=== PATIENT | male | born 1985 | race Caucasian/White ===

== ENCOUNTER 2018-12-17 22:13 | Emergency (ER) | payer MEDICAID ==
[~2018-12-17] VITALS: Ht 175.3 cm; Wt 80.6 kg
[~2018-12-17 22:13] MED LIST: AZEL6DRO OP; CYCL-394 PO; DIPH-423 PO
[2018-12-17 22:26] VITALS: BP 136/96
== END 2018-12-18 05:02 | disposition left against medical advice (07) ==
LOC: ER 22:13
DX: N20.0 Calculus of kidney (principal); Z53.21 Procedure and treatment not carried out due to patient leaving prior to being seen by health care provider
CPT/HCPCS: 99281

== ENCOUNTER 2018-12-22 18:08 | Emergency (ER) | payer MEDICAID ==
[~2018-12-22] VITALS: Ht 175.3 cm; Wt 90.2 kg
[2018-12-22 18:30] VITALS: BP 165/85
[2018-12-22] MEDS ORDERED: NAPR-56 PO (19:02)
== END 2018-12-22 19:25 | disposition home or self-care (01) ==
LOC: ER 18:09
DX: S63.502A Unspecified sprain of left wrist, initial encounter (principal); I10 Essential (primary) hypertension; Z79.899 Other long term (current) drug therapy; W18.09XA Striking against other object with subsequent fall, initial encounter; Y93.89 Activity, other specified; Y92.89 Other specified places as the place of occurrence of the external cause; Y99.8 Other external cause status
CPT/HCPCS: 29125; 73110; 99283

== ENCOUNTER 2019-06-09 02:10 | Emergency (ER) | payer MEDICAID ==
[~2019-06-09] VITALS: Ht 172.7 cm; Wt 84.0 kg
--- NOTE | 2019-06-09 02:17 | NUR ---
c\o nasal congestion that changed from clear to yellow to blood. pt reports the right side is more painful.
[2019-06-09] MEDS ORDERED: AMOX-422 PO (02:23)
[2019-06-09] MEDS ORDERED: amox tr/potassium clavulanate 875/125mg TAB PO ONE (02:25)
[2019-06-09 02:38] VITALS: BP 146/87
== END 2019-06-09 02:40 | disposition home or self-care (01) ==
LOC: ER 02:11
DX: J32.9 Chronic sinusitis, unspecified (principal); I10 Essential (primary) hypertension; Z87.442 Personal history of urinary calculi; Z79.899 Other long term (current) drug therapy
CPT/HCPCS: 99283

== ENCOUNTER 2021-04-27 05:08 | Emergency (ER) | payer MEDICAID ==
[~2021-04-27] VITALS: Ht 175.3 cm; Wt 86.4 kg
[2021-04-27] MEDS ORDERED: normal saline 1000ml 1,000 ML IVB ONE (05:15)
[2021-04-27] MEDS ORDERED: ketorolac trometh. 30mg/ml inj. IV STA (05:15)
[2021-04-27] MEDS ORDERED: ondansetron/PF 4mg/2ml inj IV ONE (05:20)
[2021-04-27] MEDS ORDERED: TADA20TA PO (05:38)
[2021-04-27] MEDS ORDERED: KETO10TA2 PO (05:38)
[2021-04-27] MEDS ORDERED: LEVO500T89 PO (05:38)
[2021-04-27] MEDS ORDERED: HYDR-3965 PO (05:38)
[2021-04-27] MEDS ORDERED: ONDA4TAB6 PO (05:38)
[2021-04-27 06:18] LABS: COLOR,URINE YELLOW (Yellow); UA COLLECTION TYPE CLN CATCH MIDSTREAM
[2021-04-27 06:19] LABS: CLARITY,URINE CLOUDY (Clear); GLUCOSE, URINE NEGATIVE (Neg); KETONES,URINE NEGATIVE (Neg); PROTEIN,URINE 100 mg/dl (Neg)
[2021-04-27 06:20] LABS: LEUKOCYTE ESTERASE ,URINE TRACE (Neg); NITRITES, URINE NEGATIVE (Neg); OCCULT BLOOD,URINE LARGE (Neg); UROBILINOGEN,URINE 0.2 E.U/dL (0.2-1.0)
[2021-04-27 06:23] LABS: BACTERIA,URINE FEW /HPF (Neg); CAL OXALATE CRYSTALS FEW /HPF (NEGATIVE); MUCUS STRANDS NONE SEEN /LPF (Neg); RBC,URINE TNTC /HPF (0-2); SPERM FEW /HPF (NEGATIVE); SQUAMOUS EPITHELIAL CELL,UR NONE SEEN /LPF (FEW); TRANSITIONAL EPI CELLS,URINE FEW /HPF; WBC,URINE 0-4 /HPF (0-4)
[2021-04-27 06:50] LABS: BASOPHILS # (AUTO) 0.1 X10'3 (0-0.2); BASOPHILS % (AUTO) 0.9 % (0-1); EOSINOPHILS # (AUTO) 0.2 X10'3 (0-0.9); EOSINOPHILS % (AUTO) 2.4 % (0-6); HEMOGLOBIN 13.9 g/dl (14.0-17.9); LYMPHOCYTES # (AUTO) 1.8 X10'3 (1.1-4.8); LYMPHOCYTES % (AUTO) 20.2 % (21-51); MEAN CORPUSCULAR HEMOGLOBIN 28.5 PG (27.0-31.0); MEAN CORPUSCULAR HGB CONC 33.9 g/dL (33.0-36.5); MEAN CORPUSCULAR VOLUME 84.2 FL (78-98); MEAN PLATELET VOLUME 7.6 FL (7.4-10.4); MONOCYTES # (AUTO) 0.8 X10'3 (0-0.9); MONOCYTES % (AUTO) 8.6 % (2-12); NEUTROPHILS # (AUTO) 6.2 X10'3 (1.8-7.7); NEUTROPHILS % (AUTO) 67.9 % (42-75); PLATELET COUNT 256 X10'3 (140-440); RED BLOOD COUNT 4.87 X10'6 (4.70-6.10); RED CELL DISTRIBUTION WIDTH 12.9 % (11.5-14.5); WHITE BLOOD COUNT 9.1 X10'3 (4.5-11.0)
[2021-04-27] MEDS: morphine 4 MG/ML inj SYRINge IV PRN ×2 (06:51→07:42)
[2021-04-27 07:10] LABS: ALANINE AMINOTRANSFERASE 26 U/L (12-78); ALBUMIN 3.1 G/DL (3.4-5.0); ALKALINE PHOSPHATASE 62 IU/L (46-116); ANION GAP 6 (8-16); ASPARTATE AMINO TRANSFERASE 15 U/L (10-37); BILIRUBIN,TOTAL 0.3 MG/DL (0.1-1.0); BLOOD UREA NITROGEN 9 MG/DL (7-18); CALCIUM 7.7 MG/DL (8.5-10.1); CHLORIDE 110 MMOL/L (99-107); GLUCOSE 107 MG/DL (70-104); POTASSIUM 3.7 MMOL/L (3.5-5.1); SODIUM 142 MMOL/L (135-145); TOTAL CARBON DIOXIDE 25.8 MMOL/L (24-32); TOTAL PROTEIN 6.1 G/DL (6.4-8.2); eGFR 84 ML/MIN
[2021-04-27 08:42] VITALS: BP 135/87
== END 2021-04-27 08:45 | disposition home or self-care (01) ==
LOC: ER 05:08
DX: N20.1 Calculus of ureter (principal); N20.0 Calculus of kidney; N13.30 Unspecified hydronephrosis; R10.32 Left lower quadrant pain; R11.0 Nausea; I10 Essential (primary) hypertension; Z87.442 Personal history of urinary calculi; Z72.89 Other problems related to lifestyle; Z79.2 Long term (current) use of antibiotics; Z79.899 Other long term (current) drug therapy
CPT/HCPCS: 36415; 74176; 80053; 81001; 85025; 87088; 96374; 96375; 96376; 99284; J1885; J2270; J2405; J7030

== ENCOUNTER 2022-09-02 17:22 | Emergency (ER) | payer MEDICAID ==
[~2022-09-02] VITALS: Ht 172.7 cm; Wt 81.8 kg
[~2022-09-02 17:22] MED LIST changes: +KETO10TA2 PO; +ONDA4TAB6 PO; +TADA20TA PO
[2022-09-02 17:25] VITALS: BP 140/89
[2022-09-02] MEDS ORDERED: FLUT16SP2 BOTHNARES (17:47)
== END 2022-09-02 18:17 | disposition home or self-care (01) ==
LOC: ER 17:23
DX: H93.91 Unspecified disorder of right ear (principal); H92.01 Otalgia, right ear; I10 Essential (primary) hypertension; Z87.442 Personal history of urinary calculi; Z72.89 Other problems related to lifestyle; Z79.899 Other long term (current) drug therapy
CPT/HCPCS: 99283

== ENCOUNTER 2022-10-28 08:55 | Emergency (ER) | payer MEDICAID ==
[~2022-10-28] VITALS: Ht 175.3 cm; Wt 81.8 kg
[~2022-10-28 08:55] MED LIST changes: +FLUT16SP2 BOTHNARES
[2022-10-28 09:00] VITALS: BP 145/96
== END 2022-10-28 16:53 | disposition left against medical advice (07) ==
LOC: ER 08:55
DX: H57.89 Other specified disorders of eye and adnexa (principal); Z53.21 Procedure and treatment not carried out due to patient leaving prior to being seen by health care provider
CPT/HCPCS: 99281

== ENCOUNTER 2024-09-22 07:12 | Emergency (ER) | payer MEDICAID ==
[~2024-09-22] VITALS: Ht 172.7 cm; Wt 89.5 kg
[2024-09-22 07:16] VITALS: BP 157/89; PULSE 111; RESP 18; TEMP 98.2; O2SAT 97
[2024-09-22] MEDS ORDERED: DOXY100T2 PO (09:10)
[2024-09-22] MEDS ORDERED: ALBU8HFA INH (09:10)
[2024-09-22] MEDS ORDERED: FLUT1BLS13 INH (09:10)
== END 2024-09-22 09:28 | disposition home or self-care (01) ==
LOC: ER 07:13
DX: J20.9 Acute bronchitis, unspecified (principal); I10 Essential (primary) hypertension; F17.210 Nicotine dependence, cigarettes, uncomplicated; Z79.899 Other long term (current) drug therapy; Z87.442 Personal history of urinary calculi; Z72.89 Other problems related to lifestyle
CPT/HCPCS: 71045; 99283